=== PATIENT | female | born 1945 | race Caucasian/White ===

== ENCOUNTER 2020-08-21 06:23 | Outpatient (CLI) | payer MEDICARE, OTHER ==
[~2020-08-21] VITALS: Ht 154.9 cm; Wt 80.8 kg
[2020-08-21] MEDS ORDERED: TRIA1TAB3 PO (14:54)
[2020-08-21] MEDS ORDERED: MTP25TSR PO (14:54)
[2020-08-21] MEDS ORDERED: DILT240C87 PO (14:54)
[2020-08-21] MEDS ORDERED: ALPR0.5T7 PO (14:54)
[2020-08-21] MEDS ORDERED: TRAZ-227 PO (14:54)
[2020-08-21] MEDS ORDERED: URSO300C3 PO (14:54)
[2020-08-21] MEDS ORDERED: CYCL10TA9 PO (14:54)
[2020-08-21] MEDS ORDERED: CALC-1026 PO (14:54)
[2020-08-21] MEDS ORDERED: SERT100T PO (14:54)
[2020-08-21] MEDS ORDERED: ASPI-1238 PO (14:54)
[2020-08-21] MEDS ORDERED: OMEP20CA18 PO (14:54)
[2020-08-21] MEDS ORDERED: HYDR500C2 PO (14:54)
[2020-08-21] MEDS ORDERED: APIX5TAB PO (14:54)
== END 2020-08-22 13:11 | disposition home or self-care (01) ==
LOC: PREOP 06:23
PROVIDERS: ATTEND Otolaryngology Otolaryngology/Facial Plastic Surgery
DX: Z01.818 Encounter for other preprocedural examination (principal)

== ENCOUNTER 2020-08-29 07:32 | Day surgery (SDC) | payer MEDICARE, OTHER ==
[~2020-08-29] VITALS: Ht 154.9 cm; Wt 80.8 kg
[2020-08-29] VITALS (9 sets, daily range): BP systolic 131–144; BP diastolic 53–92
[~2020-08-29 07:32] MED LIST: ALPR0.5T7 PO; APIX5TAB PO; ASPI-1238 PO; CALC-1026 PO; CYCL10TA9 PO; DILT240C87 PO; HYDR500C2 PO; MTP25TSR PO; OMEP20CA18 PO; SERT100T PO; TRAZ-227 PO; TRIA1TAB3 PO; URSO300C3 PO
[2020-08-29] MEDS ORDERED: LACTATED RINGERS 1,000 ML IV PRN (07:45)
[2020-08-29] MEDS ORDERED: LIDOCAINE/EPI 1%-1:100,000 (XYLOCAINE) 20ML ONE (08:12)
[2020-08-29] MEDS ORDERED: fentaNYL INJ 100 MCG/2 ML AMP ONE (08:13)
[2020-08-29] MEDS ORDERED: ONDANSETRON 4 MG/2 ML (SDV) Z0FRAN ONE (08:13)
[2020-08-29] MEDS ORDERED: LIDOCAINE PF 2% 5 ML (XYLOCAINE) VIAL ONE (08:13)
[2020-08-29] MEDS ORDERED: proPOfol 200 MG/20 ML (DIPRIVAN) VIAL IV ONE (08:13)
--- NOTE | 2020-08-29 08:35 | Progress Note-Pre Operative ---
Pre-Operative Progress Note H&P Reviewed The H&P was reviewed, patient examined and no changes noted. Date Seen by Provider: Aug 29, 2020 Time Seen by Provider: 08:00 Date H&P Reviewed: Aug 29, 2020 Time H&P Reviewed: 08:00 Pre-Operative Diagnosis: nasal dorsum lesion, right cheek lesion RAJAT RODRIGUES MD Aug 29, 2020 08:35
[2020-08-29] MEDS ORDERED: MUPIROCIN 2% OINT 22 GM (BACTROBAN) TUBE ONE (09:11)
[2020-08-29] MEDS ORDERED: BSS 15 ML ONE (09:12)
--- NOTE | 2020-08-29 09:14 | Progress Note-Post Operative ---
Post-Operative Progess Note Surgeon (s)/Epic Will[facility] Analyst (s) Surgeon RAJAT RODRIGUES MD [facility] Analyst n/a Pre-Operative Diagnosis nasal dorsum lesion, right cheek lesion Post-Operative Diagnosis same Post-Op Procedure Note Date of Procedure: Aug 29, 2020 Name of Procedure Performed: Excision of Nasal Dorsum Lesion with INtermediate Repair, Excision of Right Cheek Lesion with Intermediate Repair Description & Findings Description and Findings: n/a Anesthesia Type get Estimated Blood Loss minimal Packing none. Specimen(s) collected/removed nasal dorsum lesion with frozens right cheek lesion with frozens RAJAT RODRIGUES MD Aug 29, 2020 09:14
[2020-08-29] MEDS ORDERED: ACETAMINOPHEN 325 MG TABLET PO PRN (09:15)
[2020-08-29] MEDS ORDERED: HYDROcodone/APAP 5 MG/325 MG (LORTAB) TAB PO PRN (09:15)
[2020-08-29] MEDS ORDERED: SEVOFLURANE (ULTANE) 15 ML INHAL SOLN ONE (09:42)
--- NOTE | 2020-08-29 10:04 | Anesthesia-General Post-Op ---
General Patient Condition Mental Status/LOC: Same as Preop Cardiovascular: Satisfactory Nausea/Vomiting: Absent Respiratory: Satisfactory Pain: Controlled Complications: Absent Post Op Complications Complications None Follow Up Care/Instructions Patient Instructions None needed. Anesthesia/Patient Condition Patient Condition Patient is doing well, no complaints, stable vital signs, no apparent adverse anesthesia problems. No complications reported per nursing. [id number] TEMPLE CRNA Aug 29, 2020 10:04
[2020-08-29] MEDS ORDERED: ACHD5005 PO (10:39)
== END 2020-08-29 11:50 | disposition home or self-care (01) ==
LOC: SDC 07:32
PROVIDERS: ATTEND Otolaryngology Otolaryngology/Facial Plastic Surgery
DX: C76.0 Malignant neoplasm of head, face and neck (principal); L57.0 Actinic keratosis; I10 Essential (primary) hypertension; I48.91 Unspecified atrial fibrillation; F32.9 Major depressive disorder, single episode, unspecified; F41.9 Anxiety disorder, unspecified; K21.9 Gastro-esophageal reflux disease without esophagitis; Z79.899 Other long term (current) drug therapy; Z79.82 Long term (current) use of aspirin; Z79.01 Long term (current) use of anticoagulants
CPT/HCPCS: 87081; 88305; 88331